=== PATIENT | male | born 1965 | race American Indian/Alaskan Native ===

== ENCOUNTER 2016-10-30 16:13 | Inpatient (IN) | payer SELFPAY ==
[2016-10-30] MEDS ORDERED: NACL 0.9% 1000 ML 1,000 ML IV ONE (16:18)
--- NOTE | 2016-10-30 16:44 | Cat Scan Report ---
FINAL REPORT PROCEDURE: CT HEAD/BRAIN WO CON TECHNIQUE: Computerized tomography of the head was performed without contrast material. HISTORY: syncope COMPARISON: No prior studies are available for comparison. FINDINGS: No CT evidence of intracranial mass, hemorrhage, acute territorial infarction, or hydrocephalus. Minimal patchy white matter low attenuation is likely related to chronic microvascular ischemic changes. Intracranial arteries are symmetric in density. Calvarium is intact. Visualized paranasal sinuses and mastoids are aerated. IMPRESSION: No CT evidence of acute intracranial abnormality
[2016-10-30 17:00] LABS: Hematocrit 41.5 % (35.5-45.6); Hemoglobin 13.3 gm/dl (11.8-15.2); Mean Corpuscular Volume 80 fl (84-94); Red Blood Count 5.16 M/mm3 (3.65-5.03); White Blood Count 9.3 K/mm3 (4.5-11.0)
[2016-10-30 17:01] LABS: Mean Corpuscular HGB Conc 32 % (32-34); Platelet Count 262 K/mm3 (140-440)
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
[2016-10-30 17:09] LABS: Mean Corpuscular Hemoglobin 26 pg (28-32); Red Cell Distribution Width 20.5 % (13.2-15.2)
[2016-10-30 17:14] LABS: Alanine Aminotransferase 22 units/L (7-56); Albumin 4.6 g/dL (3.9-5); Albumin/Globulin Ratio 1.4 %; Alkaline Phosphatase 75 units/L (35-129); Anion Gap 21 mmol/L; Bilirubin,Total 0.3 mg/dL (0.1-1.2); Blood Urea Nitrogen 12 mg/dL (9-20); Calcium 9.5 mg/dL (8.4-10.2); Carbon Dioxide 19 mmol/L (22-30); Chloride 102.8 mmol/L (98-107); Creatine Kinase 255 units/L (55-170); Glucose 76 mg/dL (75-100); Potassium 3.6 mmol/L (3.6-5.0); Sodium 139 mmol/L (137-145)
[2016-10-30 17:25] LABS: Cholesterol 218 mg/dL (50-199); HDL Cholesterol 57 mg/dL (40-59); LDL Cholesterol,Direct 141 mg/dL (50-130); Triglycerides 103 mg/dL (2-149)
[2016-10-30] MEDS ORDERED: ASPIRIN PO ONE (17:38)
[2016-10-30] MEDS ORDERED: TENIVAC IM ONE (17:39)
[2016-10-30] MEDS ORDERED: ASPIRIN ONE (18:38)
[2016-10-30] MEDS ORDERED: BOOSTRIX IM ONE (18:59)
[2016-10-30 19:21] LABS: Urine Drugs of Abuse Note Disclamer
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
[2016-10-30 19:46] LABS: Bilirubin,Urine NEG (Negative); Blood,Urine NEG (Negative); Ketones,Urine NEG (Negative); Leukocyte Esterase,Urine NEG (Negative); Mucus,Urine FEW /HPF; Nitrite,Urine NEG (Negative); Protein,Urine <15 mg/dL mg/dL (Negative); Urobilinogen,Urine < 2.0 mg/dL (<2.0)
[2016-10-30] MEDS ORDERED: NACL 0.9% 1000 ML 2,000 ML IV ONE (21:29)
[2016-10-30] MEDS ORDERED: NON-FORMULARY (Gabapentin [Neurontin] 600 MG) PO SCH (21:30)
[2016-10-30] MEDS: CYMBALTA PO SCH (22:50)
[2016-10-30] MEDS: PLAVIX PO SCH (22:51)
[2016-10-30] MEDS: DESYREL PO SCH (22:51)
[2016-10-30] MEDS: PEPCID IV SCH (22:51)
[2016-10-30] MEDS: NEURONTIN PO SCH (22:51)
[2016-10-31] MEDS: NEURONTIN PO SCH ×3 (06:37→21:05)
[2016-10-31] MEDS ORDERED: NACL 0.9% 1000 ML 1,000 ML IV ONE (06:39)
[2016-10-31 07:35] LABS: Hematocrit 36.3 % (35.5-45.6); Hemoglobin 11.8 gm/dl (11.8-15.2); Mean Corpuscular HGB Conc 33 % (32-34); Mean Corpuscular Hemoglobin 26 pg (28-32); Mean Corpuscular Volume 81 fl (84-94); Platelet Count 212 K/mm3 (140-440); Red Blood Count 4.49 M/mm3 (3.65-5.03); White Blood Count 10.4 K/mm3 (4.5-11.0)
[2016-10-31 07:45] LABS: Anion Gap 16 mmol/L; BUN/Creatinine Ratio 12.85; Blood Urea Nitrogen 9 mg/dL (9-20); Calcium 8.5 mg/dL (8.4-10.2); Carbon Dioxide 21 mmol/L (22-30); Chloride 107.6 mmol/L (98-107); Glucose 99 mg/dL (75-100); Magnesium 1.9 mg/dL (1.7-2.3); Phosphorous 2.2 mg/dL (2.5-4.5); Potassium 4.3 mmol/L (3.6-5.0); Sodium 140 mmol/L (137-145)
[2016-10-31 08:01] LABS: Red Cell Distribution Width 20.4 % (13.2-15.2)
--- NOTE | 2016-10-31 09:46 | XRay Report ---
Single view chest: Compared to 01/21/16. History: Syncope. Findings: Cardiomegaly. Elevated left diaphragm compared to right. Partial resolution of discoid atelectasis/infiltrate left lower lobe compared to previous study. Right lung appears unremarkable. Impression: Linear density left lower lobe adjacent to the diaphragm probably partially resolved discoid atelectasis or pneumonitis or residual scarring compared to previous study.
[2016-10-31] MEDS ORDERED: DULOXETINE HCL 40 MG PO SCH (10:00)
[2016-10-31] MEDS: PLAVIX PO SCH (10:35)
[2016-10-31] MEDS: PEPCID IV SCH (10:35)
[2016-10-31] MEDS: ZANAFLEX PO SCH ×3 (10:35→21:06)
[2016-10-31] MEDS: ASPIRIN PO SCH (10:35)
--- NOTE | 2016-10-31 12:19 | Consultation ---
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) Past Surgical History: Other (left carotid axillary artery bypass graft) Social history: smoking, alcohol abuse Family history: hypertension Medications and Allergies Allergies Allergy/AdvReac Type Severity Reaction Status Date / Time No Known Allergies Allergy Unverified 05/02/15 15:57 Home Medications Medication Instructions Recorded Confirmed Last Taken Type Clopidogrel [Plavix] 75 mg PO QDAY 08/21/15 01/21/16 08/24/15 20:00 History Duloxetine HCl [Cymbalta] 40 mg PO QDAY 08/21/15 01/21/16 08/24/15 20:00 History Duloxetine HCl [DULoxetine] 20 mg PO DAILY 08/21/15 01/21/16 08/24/15 20:00 History Omeprazole [PriLOSEC] 20 mg PO QDAY 08/21/15 01/21/16 08/24/15 20:00 History Trazodone HCl 100 mg PO DAILY 08/21/15 01/21/16 08/24/15 20:00 History tiZANidine [Zanaflex] 4 mg PO TID 08/21/15 01/21/16 08/24/15 20:00 History Gabapentin [Neurontin] 600 mg PO Q8H 01/01/16 01/08/16 01/07/16 20:00 History Clopidogrel [Plavix] 75 mg PO QDAY 01/08/16 01/08/16 01/07/16 20:00 History Duloxetine HCl [DULoxetine] 20 mg PO QHS 01/08/16 01/08/16 01/07/16 20:00 History Tizanidine HCl [tiZANidine] 4 mg PO TID 01/08/16 01/08/16 01/07/16 20:00 History traZODone [Desyrel] 100 mg PO QHS 01/08/16 01/08/16 01/07/16 22:00 History Gabapentin [Neurontin] 600 mg PO TID 01/21/16 01/21/16 Unknown History DULoxetine [Cymbalta] 60 mg PO QHS capsule 01/30/16 Unknown Rx Ketoconazole 2% [Nizoral] 1 applic TP BID tube 01/30/16 Unknown Rx Active Meds: Active Medications Aspirin (Aspirin) 325 mg PO QDAY [facility] Last Admin: 10/31/16 10:35 Dose: 325 mg Atorvastatin Calcium (Lipitor) 40 mg PO QHS [facility] Last Admin: 10/30/16 22:51 Dose: 40 mg Clopidogrel Bisulfate (Plavix) 75 mg PO QDAY [facility] Last Admin: 10/31/16 10:35 Dose: 75 mg Duloxetine HCl (Cymbalta) 60 mg PO QHS [facility] Last Admin: 10/30/16 22:50 Dose: 60 mg Duloxetine HCl (Cymbalta) 30 mg PO QDAY [facility] Famotidine (Pepcid) 20 mg IV QDAY [facility] Last Admin: 10/31/16 10:35 Dose: 20 mg Gabapentin (Neurontin) 600 mg PO Q8HR [facility] Last Admin: 10/31/16 06:37 Dose: 600 mg Sodium Chloride (Nacl 0.9% 1000 Ml) 2,000 mls @ 125 mls/hr IV ONCE ONE Stop: 10/31/16 13:28 Last Admin: 10/30/16 22:49 Dose: 125 mls/hr Sodium Chloride (Nacl 0.9% 1000 Ml) 1,000 mls @ 125 mls/hr IV ONCE ONE Stop: 10/31/16 14:38 Last Admin: 10/31/16 07:47 Dose: 125 mls/hr Tizanidine HCl (Zanaflex) 4 mg PO TID [facility] Last Admin: 10/31/16 10:35 Dose: 4 mg Trazodone HCl (Desyrel) 100 mg PO QHS [facility] Last Admin: 10/30/16 22:51 Dose: 100 mg Physical Examination Vital Signs Pulse Resp Pulse Ox 86 14 100 10/30/16 16:08 10/30/16 16:08 10/30/16 16:08 General appearance: no acute distress HEENT: Positive: PERRL Neck: Positive: neck supple. Negative: JVD/HJR Cardiac: Positive: Reg Rate and Rhythm, S1/S2. Negative: S3 Lungs: Positive: Normal Exam Abdomen: Positive: Soft Results 10/31/16 06:47 04/02/17 06:47 CBC 10/31/16 Range/Units 06:47 WBC 10.4 (4.5-11.0) K/mm3 RBC 4.49 (3.65-5.03) M/mm3 Hgb 11.8 (11.8-15.2) gm/dl Hct 36.3 (35.5-45.6) % Plt Count 212 (140-440) K/mm3 Comprehensive Metabolic Panel 10/31/16 Range/Units 06:47 Sodium 140 (137-145) mmol/L Potassium 4.3 (3.6-5.0) mmol/L Chloride 107.6 H (98-107) mmol/L Carbon Dioxide 21 L (22-30) mmol/L BUN 9 (9-20) mg/dL Creatinine 0.7 L (0.8-1.5) mg/dL Glucose 99 (75-100) mg/dL Calcium 8.5 (8.4-10.2) mg/dL
[2016-10-31] MEDS: CYMBALTA PO SCH ×2 (13:59→21:05)
--- NOTE | 2016-10-31 16:07 | Progress Note ---
Assessment and Plan 1. 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 We'll obtain echocardiogram of the heart. 2. Elevated troponin and CK-MB: Obtain serial cardiac enzymes. Second set of Troponin is normal. discusse with type mapper for Stress test in am 3. Hyperlipidemia: on statin. 4. Tobacco use disorder: Tobacco cessation counseling was done 5. Alcohol use disorder: Counseling on alcohol use cessation 6. Possible early rhabdomyolysis with elevated total CK. Total CK improving with iv hydration with normal saline. 7. Metabolic acidosis: Likely secondary to increased ETOH consumption 8. DVT prophylaxis with Lovenox and GI prophylaxis with Protonix Subjective Date of service: 10/31/16 Principal diagnosis: syncopy from autonomic dysfunction, elevated Nancy Interval history: No more syncope or chest pain Objective - Constitutional Vitals: Vital Signs - 12hr 10/31/16 10/31/16 10/31/16 05:47 07:51 12:44 Temperature 98.4 F 98.7 F Pulse Rate 85 Pulse Rate [ 78 Left] Respiratory 19 12 Rate Blood Pressure 137/91 120/68 [Left Arm] O2 Sat by Pulse 96 Oximetry General appearance: Present: no acute distress, well-nourished - EENT Eyes: PERRL, EOM intact ENT: hearing intact, clear oral mucosa - Neck Neck: supple, normal ROM - Respiratory Respiratory effort: normal Respiratory: bilateral: CTA - Cardiovascular Rhythm: regular Heart Sounds: Present: S1 & S2. Absent: gallop, rub Extremities: pulses intact, No edema, normal color, Full ROM Extremity abnormal: other (paralysis of the left UE from brachai nerve injury) - Gastrointestinal General gastrointestinal: Present: soft, non-tender, non-distended, normal bowel sounds - Integumentary Integumentary: clear, warm, dry - Musculoskeletal Musculoskeletal: 1, strength equal bilaterally - Neurologic Neurologic: moves all extremities (Except left uE, pralysed from brachail nerve injury) - Psychiatric Psychiatric: memory intact, appropriate mood/affect, intact judgment & insight - Labs CBC & Chem 7: 10/31/16 06:47 10/31/16 06:47 Labs: Abnormal lab results 10/30/16 10/31/16 10/31/16 Range/Units 20:10 06:47 06:47 MCV 81 L (84-94) fl MCH 26 L (28-32) pg RDW 20.4 H (13.2-15.2) % Chloride 107.6 H (98-107) mmol/L Carbon Dioxide 21 L (22-30) mmol/L Creatinine 0.7 L (0.8-1.5) mg/dL Phosphorus 2.2 L (2.5-4.5) mg/dL Total Creatine Kinase 287 H (55-170) units/L 10/31/16 Range/Units 06:47 MCV (84-94) fl MCH (28-32) pg RDW (13.2-15.2) % Chloride (98-107) mmol/L Carbon Dioxide (22-30) mmol/L Creatinine (0.8-1.5) mg/dL Phosphorus (2.5-4.5) mg/dL Total Creatine Kinase 221 H (55-170) units/L
[2016-10-31] MEDS: DESYREL PO SCH (21:06)
[2016-11-01] MEDS: NEURONTIN PO SCH ×3 (06:30→22:39)
[2016-11-01 06:36] LABS: Alanine Aminotransferase 16 units/L (7-56); Albumin 3.6 g/dL (3.9-5); Albumin/Globulin Ratio 1.1 %; Alkaline Phosphatase 69 units/L (35-129); Anion Gap 16 mmol/L; BUN/Creatinine Ratio 8.75; Bilirubin,Total 0.2 mg/dL (0.1-1.2); Blood Urea Nitrogen 7 mg/dL (9-20); Calcium 8.5 mg/dL (8.4-10.2); Carbon Dioxide 22 mmol/L (22-30); Glucose 107 mg/dL (75-100); Potassium 4.3 mmol/L (3.6-5.0); Sodium 139 mmol/L (137-145); Total Protein 6.9 g/dL (6.3-8.2)
[2016-11-01] MEDS ORDERED: LEXISCAN IV ONE ×2 (09:48→09:54)
[2016-11-01] MEDS ORDERED: PEPCID PO SCH (11:00)
[2016-11-01] MEDS: ZANAFLEX PO SCH ×3 (14:22→22:40)
[2016-11-01] MEDS: ASPIRIN PO SCH (14:22)
[2016-11-01] MEDS: PLAVIX PO SCH (14:24)
[2016-11-01] MEDS: CYMBALTA PO SCH ×2 (14:47→22:43)
--- NOTE | 2016-11-01 19:09 | Progress Note ---
Assessment and Plan - Patient Problems (1) Syncope Current Visit: Yes Status: Acute Qualifiers: Syncope type: S Encounter type: E Plan to address problem: Cardiac workup is negative, normal myocardial perfusion and normal left ventricular systolic function on gated SPECT. Subjective Date of service: 11/01/16 Principal diagnosis: syncopy from autonomic dysfunction, elevated Nancy Interval history: Patient had a Persantine thallium stress test today, normal myocardial perfusion and normal left ventricular systolic function. Objective Vital Signs Temp Pulse Pulse Resp Resp BP BP 11/01/16 12:28 85 142/88 11/01/16 12:27 95 H 148/89 11/01/16 12:26 82 130/82 11/01/16 12:25 81 117/83 11/01/16 12:24 63 140/93 11/01/16 12:00 97.9 F 76 18 155/108 11/01/16 11:30 59 L 133/92 11/01/16 10:00 68 66 20 20 11/01/16 05:10 98.2 F 78 18 126/68 11/01/16 01:00 60 11/01/16 00:45 97.9 F 72 18 123/72 10/31/16 20:40 98.1 F 70 18 123/74 Pulse Ox 11/01/16 12:28 11/01/16 12:27 11/01/16 12:26 11/01/16 12:25 11/01/16 12:24 11/01/16 12:00 98 11/01/16 11:30 11/01/16 10:00 99 11/01/16 05:10 95 11/01/16 01:00 11/01/16 00:45 96 10/31/16 20:40 98 - Physical Examination General: Appears Well, No Apparent Distress HEENT: Positive: PERRL Neck: Positive: neck supple. Negative: JVD/HJR Cardiac: Positive: Reg Rate and Rhythm Lungs: Positive: clear to auscultation Neuro: Positive: Grossly Intact Abdomen: Positive: Soft Skin: Positive: Clear Extremities: Absent: edema - Labs and Meds Cardiac Enzymes 11/01/16 Range/Units 05:39 AST 16 (5-40) units/L Comprehensive Metabolic Panel 11/01/16 Range/Units 05:39 Sodium 139 (137-145) mmol/L Potassium 4.3 (3.6-5.0) mmol/L Chloride 105.0 (98-107) mmol/L Carbon Dioxide 22 (22-30) mmol/L BUN 7 L (9-20) mg/dL Creatinine 0.8 (0.8-1.5) mg/dL Glucose 107 H (75-100) mg/dL Calcium 8.5 (8.4-10.2) mg/dL AST 16 (5-40) units/L ALT 16 (7-56) units/L Alkaline Phosphatase 69 (35-129) units/L Total Protein 6.9 (6.3-8.2) g/dL Albumin 3.6 L (3.9-5) g/dL
--- NOTE | 2016-11-01 19:30 | Admit Criteria Form ---
Admission Criteria Documentation: SYNCOPE Clinical Indications for Admission to Inpatient Care ( Place 'X' for any and all applicable criteria): Admission is indicated for syncope and ANY ONE of the following (1)(2)(3)(4)(5) (6)(7) : [ X]I. Inpatient admission required rather than observation care (Also use Syncope: Observation Care Criteria as appropriate) because of ANY ONE of the following: [ ]a) Hemodynamic instability that is severe or persistent [ ]b) Cardiac arrhythmias of immediate concern identified or strongly suspected (eg, needs electrophysiologic study) [ ]c) Acute coronary syndrome identified (Also use Myocardial Infarction or Angina Criteria form ) [ ]d) Structural cardiac disorder (eg, aortic stenosis) suspected as cause that requires immediate correction [ ]e) Respiratory symptoms (eg, dyspnea, tachypnea) that are severe or persistent [ ]f) Neurologic signs or symptoms that are severe or persistent ( eg, stroke, seizures, altered mental status) [ ]g) Severe electrolyte abnormalities requiring inpatient care [ ]h) Supplemental oxygen or respiratory treatment for over 24 hrs that are performable only in acute inpatient setting [ ]i) IV fluid to replace significant ongoing (eg, for over 24 hrs ) losses (>3 L/m2 per day) [ ]j) Continuous intravenous infusion of anticoagulation, platelet inhibitor, vasoactive, or antiarrhythmic medication(15)(16) [ ]k) Pulmonary artery catheter monitoring [ ]l) Temporary pacemaker placement(17) [ ]m) Emergent cardioversion(18) [X ]n) Other conditions, treatment or monitoring requiring inpatient admission [ ]II. Suspicion of imminently dangerous cause (eg, rare causes like pericardial tamponade, pulmonary embolism) [ ]III. Syncope causing severe injury requiring hospitalization Extended stay beyond goal length of stay may be needed for(28) [ ]a) Dangerous arrhythmia(15)(23)(27)(29) [ ]b) Myocardial ischemia [ ]c) Seizure disorder [ ]d) Syncope-related injuries The original [employer] content created by [employer] has been revised. The portions of the content which have been revised are identified through the use of italic text or in bold, and [employer] has neither reviewed nor approved the modified material. All other unmodified content is copyright [employer] [employer]. Please see references footnoted in the original [facility] edition 2016 Admission Criteria Met: Yes
--- NOTE | 2016-11-01 22:29 | Treadmill Report ---
THALLIUM STRESS TEST LEFT VENTRICLE: Left ventricular chamber size is within normal. Perfusion study demonstrates normal apical thinning, otherwise homogeneous uptake of the tracer in all segments. No significant defects identified. Gated analysis demonstrates normal left ventricular systolic function, ejection fraction 56%. CONCLUSION: Normal myocardial perfusion study. JOB# [id number] CA/NTS
[2016-11-01] MEDS: DESYREL PO SCH (22:40)
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
[2016-11-02] MEDS: NEURONTIN PO SCH (06:47)
[2016-11-02 06:54] LABS: Alanine Aminotransferase 15 units/L (7-56); Albumin 3.9 g/dL (3.9-5); Albumin/Globulin Ratio 1.4 %; Alkaline Phosphatase 70 units/L (35-129); Anion Gap 17 mmol/L; BUN/Creatinine Ratio 11.42; Bilirubin,Total 0.2 mg/dL (0.1-1.2); Blood Urea Nitrogen 8 mg/dL (9-20); Calcium 8.7 mg/dL (8.4-10.2); Carbon Dioxide 23 mmol/L (22-30); Chloride 106.2 mmol/L (98-107); Glucose 106 mg/dL (75-100); Potassium 4.1 mmol/L (3.6-5.0); Sodium 142 mmol/L (137-145); Total Protein 6.7 g/dL (6.3-8.2)
[2016-11-02] MEDS: ZANAFLEX PO SCH (08:35)
[2016-11-02 09:52] VITALS: BP 125/78
== END 2016-11-02 10:15 | disposition home or self-care (01) | DRG 74 ==
LOC: ED 16:13 → 4A 17:38
PROVIDERS: ADMIT Family Medicine; ATTEND Family Medicine
DX: G90.9 Disorder of the autonomic nervous system, unspecified (principal); M62.82 Rhabdomyolysis; E87.2 Acidosis; R55 Syncope and collapse; I10 Essential (primary) hypertension; K21.9 Gastro-esophageal reflux disease without esophagitis; S03.2XXA Dislocation of tooth, initial encounter; F17.200 Nicotine dependence, unspecified, uncomplicated; F10.10 Alcohol abuse, uncomplicated; E78.5 Hyperlipidemia, unspecified; Z82.49 Family history of ischemic heart disease and other diseases of the circulatory system; Z71.6 Tobacco abuse counseling
CPT/HCPCS: 36415; 70450; 71010; 78452; 80048; 80053; 80061; 80307; 80320; 81001; 82550; 82553; 82962; 83735; 84100; 84484; 85027; 90471; 90714; 90715; 93005; 93010; 93017; 96360; 99406; A9270-GY; A9502; G0480; J2785; J7030

== ENCOUNTER 2017-03-09 13:56 | Emergency (ER) | payer SELFPAY ==
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
--- NOTE | 2017-03-09 15:15 | Cat Scan Report ---
CRANIAL CT SCAN: History: Dizziness. Serial contiguous axial images were obtained through the cranium. Intravenous contrast material was not administered. The ventricles are normal in size and appearance. There is no mass effect or midline shift. No areas of abnormally increased or decreased attenuation are seen. No mass lesion is seen. The mastoid air cells and visualized portions of the sinuses are normal. IMPRESSION: Cranial CT scan within normal limits.
[2017-03-09 15:21] LABS: Anion Gap 20 mmol/L; BUN/Creatinine Ratio 13.75; Blood Urea Nitrogen 11 mg/dL (9-20); Calcium 9.4 mg/dL (8.4-10.2); Carbon Dioxide 23 mmol/L (22-30); Chloride 100.8 mmol/L (98-107); Glucose 101 mg/dL (75-100); Potassium 4.2 mmol/L (3.6-5.0); Sodium 140 mmol/L (137-145)
[2017-03-09 15:47] LABS: Basophils % (Auto) 0.7 % (0.0-1.8); Eosinophils % (Auto) 1.8 % (0.0-4.3); Hematocrit 47.1 % (35.5-45.6); Hemoglobin 15.7 gm/dl (11.8-15.2); Mean Corpuscular HGB Conc 33 % (32-34); Mean Corpuscular Hemoglobin 29 pg (28-32); Mean Corpuscular Volume 88 fl (84-94); Platelet Count 255 K/mm3 (140-440); Red Blood Count 5.38 M/mm3 (3.65-5.03); Red Cell Distribution Width 18.4 % (13.2-15.2); White Blood Count 9.5 K/mm3 (4.5-11.0)
[2017-03-09 17:43] LABS: Urine Drugs of Abuse Note Disclamer
[2017-03-09 17:51] LABS: Bilirubin,Urine NEG (Negative); Blood,Urine NEG (Negative); Ketones,Urine 20 mg/dL (Negative); Leukocyte Esterase,Urine TR (Negative); Mucus,Urine FEW /HPF; Nitrite,Urine NEG (Negative); Protein,Urine <15 mg/dL mg/dL (Negative); Urobilinogen,Urine < 2.0 mg/dL (<2.0)
[2017-03-09 20:00] VITALS: BP 124/76
== END 2017-03-09 19:05 | disposition home or self-care (01) ==
LOC: ED 13:56
DX: R42 Dizziness and giddiness (principal); I10 Essential (primary) hypertension; I25.2 Old myocardial infarction; K21.9 Gastro-esophageal reflux disease without esophagitis; F17.200 Nicotine dependence, unspecified, uncomplicated
CPT/HCPCS: 36415; 70450; 80048; 80307; 81001; 84443; 84484; 85025; 93005; 93010

== ENCOUNTER 2018-03-23 20:30 | Inpatient (IN) | payer SELFPAY ==
[2018-03-23] MEDS ORDERED: NACL 0.9% 1000 ML IV ONE (21:22)
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
[2018-03-23 21:56] LABS: Basophils # (Auto) 0.1 K/mm3 (0.0-0.1); Basophils % (Auto) 0.6 % (0.0-1.8); Eosinophils # (Auto) 0.1 K/mm3 (0.0-0.4); Eosinophils % (Auto) 0.8 % (0.0-4.3); Hematocrit 44.2 % (35.5-45.6); Lymphocytes # (Auto) 1.1 K/mm3 (1.2-5.4); Lymphocytes % (Auto) 8.2 % (13.4-35.0); Mean Corpuscular HGB Conc 34 % (32-34); Mean Corpuscular Hemoglobin 31 pg (28-32); Mean Corpuscular Volume 92 fl (84-94); Monocytes # (Auto) 0.9 K/mm3 (0.0-0.8); Monocytes % (Auto) 7.2 % (0.0-7.3); Platelet Count 228 K/mm3 (140-440); Red Blood Count 4.81 M/mm3 (3.65-5.03); Red Cell Distribution Width 15.3 % (13.2-15.2)
[2018-03-23 22:12] LABS: Partial Thromboplastin Time 29.7 Sec. (24.2-36.6)
[2018-03-23 22:14] LABS: Creatine Kinase MB 3.3 ng/mL (0.0-4.0)
[2018-03-23 22:17] LABS: Alanine Aminotransferase 15 units/L (7-56); Albumin 4.7 g/dL (3.9-5); BUN/Creatinine Ratio 13; Blood Urea Nitrogen 16 mg/dL (9-20); Calcium 9.6 mg/dL (8.4-10.2); Hemolysis Index 20
--- NOTE | 2018-03-23 22:19 | Cat Scan Report ---
FINAL REPORT EXAM: CT HEAD/BRAIN WO CON HISTORY: syncope TECHNIQUE: CT was performed from the foramen magnum through the vertex in the axial plane without the use of intravenous contrast. PRIORS: 10/30/2016 FINDINGS: The [place]/white matter attenuation pattern is normal. There is no mass lesion or mass effect. There are no abnormal extra-axial fluid collections. There is no evidence of acute intracranial hemorrhage or infarct. The ventricles are of normal size and configuration. The skull and orbits are unremarkable. The visualized paranasal sinuses are clear. IMPRESSION: Normal CT of the head.
[2018-03-23 22:24] LABS: Free T4 (Free Thyroxine) 1.2 ng/dL (0.76-1.46)
[2018-03-23 22:37] LABS: Chol/HDL Ratio 4.7 %
[2018-03-23] MEDS ORDERED: ASPIRIN PO ONE (23:17)
--- NOTE | 2018-03-24 01:27 | Cat Scan Report ---
FINAL REPORT PROCEDURE: CT ANGIO CHEST TECHNIQUE: Computerized tomographic angiography of the chest was performed after the IV injection of iodinated nonionic contrast including image processing. The image data was postprocessed using 2-dimensional multiplanar reformatted (MPR) and 3-dimensional (MIP and/or volume rendered) techniques. HISTORY: syncope, elevated d-dimer COMPARISON: No prior studies are available for comparison. FINDINGS: Heart and pericardium: Normal. Thoracic aorta: There is no thoracic aortic aneurysm or dissection.. Pulmonary vasculature: There is no demonstrated pulmonary embolism. Lymph nodes: No enlarged thoracic lymph nodes. Lungs: There are fibrotic changes at the lung bases greater on the left.. Pleural space: There is nonspecific left pleural thickening.. Musculoskeletal structures: There are old the left-sided rib fractures with hardware.. Upper abdominal structures: No significant abnormality. IMPRESSION: There is no thoracic aortic aneurysm or dissection.. There is no demonstrated pulmonary embolism. There are fibrotic changes at the lung bases greater on the left..
[2018-03-24 03:23] LABS: Bilirubin,Urine NEG (Negative); Blood,Urine NEG (Negative); Color,Urine Yellow (Yellow); Mucus,Urine 3+ /HPF; Protein,Urine <15 mg/dL mg/dL (Negative)
[2018-03-24 03:30] LABS: Amphetamine Screen,Urine PRESUMPTIVE NEGATIVE; Benzodiazepines Screen,Urine PRESUMPTIVE NEGATIVE; Cannabinoid Screen,Urine PRESUMPTIVE NEGATIVE; Cocaine Screen,Urine PRESUMPTIVE NEGATIVE; Methadone Screen,Urine PRESUMPTIVE NEGATIVE; Opiate Screen,Urine PRESUMPTIVE NEGATIVE
[2018-03-24] MEDS ORDERED: ZOFRAN IV PRN (03:56)
[2018-03-24] MEDS ORDERED: TYLENOL PO PRN (04:00)
[2018-03-24] MEDS ORDERED: NEURONTIN ONE (04:57)
[2018-03-24] MEDS ORDERED: NACL 0.9% 1000 ML 1,000 ML ONE (04:57)
[2018-03-24] MEDS: NEURONTIN PO SCH ×3 (05:00→22:14)
[2018-03-24] MEDS: NACL 0.9% 1000 ML 1,000 ML IV SCH (05:00)
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
[2018-03-24 06:39] LABS: Creatine Kinase MB 3.3 ng/mL (0.0-4.0)
[2018-03-24] MEDS: PLAVIX PO SCH (09:03)
[2018-03-24] MEDS: ASPIRIN PO SCH (09:03)
[2018-03-24] MEDS: PROTONIX PO SCH (09:03)
[2018-03-24] MEDS: ZANAFLEX PO SCH ×3 (09:03→20:19)
[2018-03-24] MEDS: NIZORAL TP SCH ×3 (09:04→22:15)
[2018-03-24] MEDS ORDERED: HEPARIN SUB-Q SCH (10:00)
[2018-03-24] MEDS ORDERED: DULOXETINE HCL 20 MG PO SCH ×2 (10:00→22:00)
[2018-03-24] MEDS ORDERED: PEPCID PO SCH (10:00)
--- NOTE | 2018-03-24 12:24 | Consultation ---
History of Present Illness Consult date: 03/24/18 Consult reason: syncope History of present illness: This is a 53 year old male who is admitted with syncope. Patient reports feeling lightheaded just prior to passing out. He denies palpitations and diaphoresis. He denies chest pain and shortness of breath. Blood pressure of 105 /61 on initial workup. He has a normal head CT scan. No evidence of pulmonary embolism by chest CTA. His ECG is a sinus rhythm, no acute ischemic changes. Patient denies a prior cardiac history. Of note, patient was admitted to this hospital a year ago for syncope. At that time, he underwent cardiac evaluation with a thallium stress test that documents a normal myocardial perfusion and a normal left ventricular systolic function. Since discharge, patient has failed for outpatient cardiac follow up and reports he does not have a primary care physician. Medications and Allergies Allergies Allergy/AdvReac Type Severity Reaction Status Date / Time No Known Allergies Allergy Unverified 05/02/15 15:57 Home Medications Medication Instructions Recorded Confirmed Last Taken Type Clopidogrel [Plavix] 75 mg PO QDAY 08/21/15 01/21/16 08/24/15 20:00 History Duloxetine HCl [DULoxetine] 20 mg PO DAILY 08/21/15 01/21/16 08/24/15 20:00 History Omeprazole [PriLOSEC] 20 mg PO QDAY 08/21/15 01/21/16 08/24/15 20:00 History tiZANidine [Zanaflex] 4 mg PO TID 08/21/15 01/21/16 08/24/15 20:00 History Gabapentin [Neurontin] 600 mg PO Q8H 01/01/16 01/08/16 01/07/16 20:00 History Tizanidine HCl [tiZANidine] 4 mg PO TID 01/08/16 01/08/16 01/07/16 20:00 History traZODone [Desyrel] 100 mg PO QHS 01/08/16 01/08/16 01/07/16 22:00 History DULoxetine [Cymbalta] 60 mg PO QHS capsule 01/30/16 Unknown Rx Ketoconazole 2% [Nizoral] 1 applic TP BID tube 01/30/16 Unknown Rx Aspirin [Aspirin TAB] 325 mg PO QDAY tablet 11/02/16 Unknown Rx AtorvaSTATin [Lipitor] 40 mg PO QHS tablet 11/02/16 Unknown Rx Clopidogrel [Plavix] 75 mg PO QDAY #30 tablet 11/02/16 Unknown Rx DULoxetine [Cymbalta] 30 mg PO QDAY capsule 11/02/16 Unknown Rx Duloxetine HCl [Cymbalta] 40 mg PO QDAY #30 capsule. 11/02/16 Unknown Rx Duloxetine HCl [DULoxetine] 20 mg PO QHS #30 capsule. 11/02/16 Unknown Rx Famotidine [Pepcid] 20 mg PO QDAY tablet 11/02/16 Unknown Rx Gabapentin [Neurontin] 600 mg PO TID #90 tablet 11/02/16 Unknown Rx Trazodone HCl 100 mg PO DAILY #30 tablet 11/02/16 Unknown Rx Active Meds: Active Medications Acetaminophen (Tylenol) 650 mg PO Q4H PRN PRN Reason: Fever >101 Aspirin (Aspirin) 325 mg PO QDAY [facility] Last Admin: 03/24/18 09:03 Dose: 325 mg Atorvastatin Calcium (Lipitor) 40 mg PO QHS [facility] Clopidogrel Bisulfate (Plavix) 75 mg PO QDAY [facility] Last Admin: 03/24/18 09:03 Dose: 75 mg Gabapentin (Neurontin) 600 mg PO Q8HR [facility] Last Admin: 03/24/18 05:00 Dose: 600 mg Sodium Chloride (Nacl 0.9% 1000 Ml) 1,000 mls @ 100 mls/hr IV DIRECT [facility] Last Admin: 03/24/18 05:00 Dose: 100 mls/hr Ketoconazole (Nizoral) 1 applic TP BID [facility] Last Admin: 03/24/18 09:11 Dose: Not Given Miscellaneous Medication (Duloxetine Hcl [Duloxetine]) 20 mg PO DAILY [facility] Miscellaneous Medication (Duloxetine Hcl [Duloxetine]) 20 mg PO QHS [facility] Ondansetron HCl (Zofran) 4 mg IV Q8H PRN PRN Reason: Nausea And Vomiting Pantoprazole Sodium (Protonix) 20 mg PO QDAY [facility] Last Admin: 03/24/18 09:03 Dose: 20 mg Pneumococcal Polyvalent Vaccine (Pneumovax 23) 0.5 ml IM .ONCE ONE Stop: 03/25/18 12:01 Tizanidine HCl (Zanaflex) 4 mg PO TID [facility] Last Admin: 03/24/18 09:03 Dose: 4 mg Trazodone HCl (Desyrel) 100 mg PO QHS [facility] Physical Examination Vital Signs Temp Pulse Resp BP Pulse Ox 98.3 F 76 14 105/61 98 03/23/18 20:54 03/23/18 20:54 03/23/18 20:54 03/23/18 20:54 03/23/18 20:54 General appearance: no acute distress HEENT: Positive: PERRL Cardiac: Positive: Reg Rate and Rhythm Results 03/23/18 21:48 03/23/18 21:48 Cardiac Enzymes 03/23/18 03/23/18 03/24/18 Range/Units 21:48 21:48 05:43 AST 15 (5-40) units/L CK-MB (CK-2) 3.3 3.3 (0.0-4.0) ng/mL Coagulation 03/23/18 Range/Units 21:49 PT 13.7 (12.2-14.9) Sec. INR 1.00 (0.87-1.13) APTT 29.7 (24.2-36.6) Sec. Lipids 03/23/18 Range/Units 21:48 Triglycerides 106 (2-149) mg/dL Cholesterol 207 H (50-199) mg/dL HDL Cholesterol 44 (40-59) mg/dL Cholesterol/HDL Ratio 4.70 % CBC 03/23/18 Range/Units 21:48 WBC 12.8 H (4.5-11.0) K/mm3 RBC 4.81 (3.65-5.03) M/mm3 Hgb 15.0 (11.8-15.2) gm/dl Hct 44.2 (35.5-45.6) % Plt Count 228 (140-440) K/mm3 Lymph # 1.1 L (1.2-5.4) K/mm3 [place] # 0.9 H (0.0-0.8) K/mm3 Eos # 0.1 (0.0-0.4) K/mm3 Baso # 0.1 (0.0-0.1) K/mm3 Comprehensive Metabolic Panel 03/23/18 Range/Units 21:48 Sodium 139 (137-145) mmol/L Potassium 4.3 (3.6-5.0) mmol/L Chloride 101.9 (98-107) mmol/L Carbon Dioxide 23 (22-30) mmol/L BUN 16 (9-20) mg/dL Creatinine 1.2 (0.8-1.5) mg/dL Glucose 97 (75-100) mg/dL Calcium 9.6 (8.4-10.2) mg/dL AST 15 (5-40) units/L ALT 15 (7-56) units/L Alkaline Phosphatase 68 (35-129) units/L Total Protein 7.4 (6.3-8.2) g/dL Albumin 4.7 (3.9-5) g/dL Assessment and Plan - Patient Problems (1) Syncope Current Visit: Yes Status: Acute
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
[2018-03-24] MEDS ORDERED: DESYREL PO SCH (22:00)
[2018-03-25 00:43] VITALS: BP 127/77
[2018-03-25] MEDS: NEURONTIN PO SCH (05:41)
[2018-03-25] MEDS: NACL 0.9% 1000 ML 1,000 ML IV SCH (05:42)
--- NOTE | 2018-03-25 10:11 | Progress Note ---
Assessment and Plan - Patient Problems (1) Elevated troponin Current Visit: Yes Status: Acute (2) Syncope Current Visit: Yes Status: Acute (3) Elevated cholesterol Current Visit: No Status: Acute Subjective Date of service: 03/25/18 Interval history: NO C\O Objective Vital Signs Temp Pulse Resp Resp BP BP Pulse Ox 03/25/18 08:03 69 03/25/18 00:26 63 127/77 93 03/25/18 00:25 98.5 F 64 20 127/77 93 03/24/18 20:55 72 95 03/24/18 20:53 18 18 98 03/24/18 19:49 98.6 F 65 20 121/78 96 03/24/18 19:40 81 03/24/18 16:13 98.1 F 60 16 119/77 96 - Physical Examination General: Other (OW) HEENT: Positive: PERRL Neck: Positive: neck supple Cardiac: Positive: Reg Rate and Rhythm Lungs: Positive: clear to auscultation Abdomen: Positive: Unremarkable, Soft Skin: Positive: Clear Extremities: Present: Other (L.ARM AMPUT.) - Labs and Meds Cardiac Enzymes 03/24/18 Range/Units 14:59 CK-MB (CK-2) 3.0 (0.0-4.0) ng/mL
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
[2018-03-25] MEDS: ASPIRIN PO SCH (10:17)
[2018-03-25] MEDS: ZANAFLEX PO SCH (10:17)
[2018-03-25] MEDS: PLAVIX PO SCH (10:17)
[2018-03-25] MEDS: PROTONIX PO SCH (10:17)
[2018-03-25] MEDS: NIZORAL TP SCH (10:18)
[2018-03-25] MEDS ORDERED: PNEUMOVAX 23 IM ONE (12:00)
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
== END 2018-03-25 13:49 | disposition home or self-care (01) | DRG 312 ==
LOC: ED 20:30 → 4A 03-24 03:49
PROVIDERS: ADMIT Internal Medicine; ATTEND Internal Medicine
PROC: 3E0234Z Introduction of Serum, Toxoid and Vaccine into Muscle, Percutaneous Approach (ICD-10-PCS; principal; 2018-03-25)
DX: R55 Syncope and collapse (principal); K21.9 Gastro-esophageal reflux disease without esophagitis; I10 Essential (primary) hypertension; F17.200 Nicotine dependence, unspecified, uncomplicated; R74.8 Abnormal levels of other serum enzymes; I65.22 Occlusion and stenosis of left carotid artery; I95.9 Hypotension, unspecified; Z23 Encounter for immunization; Z89.222 Acquired absence of left upper limb above elbow; Z79.82 Long term (current) use of aspirin; Z79.899 Other long term (current) drug therapy; I25.2 Old myocardial infarction; Z72.89 Other problems related to lifestyle
CPT/HCPCS: 36415; 70450; 71275; 80053; 80061; 80307; 80320; 81001; 82140; 82550; 82553; 83880; 84439; 84443; 84484; 85025; 85379; 85610; 85730; 87040; 90732; 93005; 93010; 93306; 93880; 99406; A9270-GY; G0480; J7030; Q9967

== ENCOUNTER 2018-12-25 00:21 | Emergency (ER) | payer OTHER ==
[2018-12-25 01:20] LABS: Basophils % (Auto) 0.3 % (0.0-1.8); Eosinophils # (Auto) 0.1 K/mm3 (0.0-0.4); Eosinophils % (Auto) 0.7 % (0.0-4.3); Hematocrit 51.1 % (35.5-45.6); Hemoglobin 17.2 gm/dl (11.8-15.2); Lymphocytes % (Auto) 22.7 % (13.4-35.0); Mean Corpuscular HGB Conc 34 % (32-34); Mean Corpuscular Volume 92 fl (84-94); Monocytes # (Auto) 1.4 K/mm3 (0.0-0.8); Monocytes % (Auto) 10.5 % (0.0-7.3); Platelet Count 286 K/mm3 (140-440); Red Blood Count 5.54 M/mm3 (3.65-5.03); Red Cell Distribution Width 14.8 % (13.2-15.2)
[2018-12-25 01:57] LABS: Bacteria,Urine 1+ /HPF (Negative); Bilirubin,Urine NEG (Negative); Blood,Urine NEG (Negative); Color,Urine Amber (Yellow); Hyaline Casts,Urine 14 /LPF; Mucus,Urine 3+ /HPF
[2018-12-25] MEDS ORDERED: TORADOL IV STA (02:13)
[2018-12-25] MEDS ORDERED: LEVAQUIN PO STA (02:13)
[2018-12-25] MEDS ORDERED: ZOFRAN IV STA (02:13)
[2018-12-25 02:44] LABS: Albumin 5.2 g/dL (3.9-5); Calcium 10.9 mg/dL (8.4-10.2)
--- NOTE | 2018-12-25 04:58 | Cat Scan Report ---
PROCEDURE: CT ABDOMEN PELVIS WO CON TECHNIQUE: CT imaging is obtained through the abdomen and pelvis without contrast HISTORY: Lower ABD Pain COMPARISONS: CT chest 03/24/2018 FINDINGS: Imaged intrathoracic contents are remarkable for linear bibasilar atelectasis/scarring. Kidneys are n ormal in size, axis and position. Several left renal cysts measure up to 3 cm. No hydroureteronephros is. Nonobstructive nephrolithiasis measures up to 2 mm in both collecting systems. No stones are seen within the urinary bladder. Pelvic phleboliths are noted. There is a subcentimeter low-density lesion in the left liver on axial series 2, image 38, which is m ost likely a benign cyst. The liver, gallbladder, pancreas, spleen, and adrenal glands otherwise demo nstrate an unremarkable noncontrast appearance. Hollow enteric organs are normal in course and caliber. Appendix is normal. No intra-abdominal free a ir/fluid or lymphadenopathy. Aorta is normal in course and caliber. Superficial soft tissues are remarkable for a midline laparotomy scar. No acute or aggressive appeari ng skeletal findings. Fixation involving multiple old left rib fractures. IMPRESSION: No acute findings in the abdomen or pelvis. This document is electronically signed by Jasiel Henderson MD., Dec 25 2018 04:55:47 AM ET
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
[2018-12-25 07:13] VITALS: BP 100/60
== END 2018-12-25 07:12 | disposition home or self-care (01) ==
LOC: ED 00:21
DX: N39.0 Urinary tract infection, site not specified (principal); N28.9 Disorder of kidney and ureter, unspecified; I10 Essential (primary) hypertension; I25.2 Old myocardial infarction; K21.9 Gastro-esophageal reflux disease without esophagitis; Z98.890 Other specified postprocedural states
CPT/HCPCS: 36415; 74176; 80053; 81001; 83690; 85025; 96374; 96375; 99284; J1885; J2405